=== PATIENT | female | born 1940 | race Caucasian/White ===

== ENCOUNTER → 2022-12-06 | Outpatient (CLI) | payer MEDICARE ==
[2022-12-06 15:51] LABS: Anion Gap 9.8 mmol/L (4.00-12.00); Carbon Dioxide 27.2 mmol/L (21.6-31.8); Potassium 4.3 mmol/L (3.5-5.5)
[2022-12-06 20:42] LABS: Basophils # (A) 0.06 X 10*3/uL (0.00-0.10); Basophils % (A) 1.1 %; Eosinophils # (A) 0.17 X 10*3/uL (0.04-0.35); HCT 43.7 % (37.2-46.3); HGB 14.1 d/dL (12.0-15.0); Lymphocytes # (A) 2.02 X 10*3/uL (0.90-5.00); Lymphocytes % (A) 35.4 %; MCH 30.4 pg (27.0-32.0); MCHC 32.3 d/dL (32.0-37.0); MCV 94.2 FL (80.0-97.0); Mean Platelet Volume 10.7 FL (9.5-12.2); Monocytes # (A) 0.52 X 10*3/uL (0.20-1.00); Monocytes % (A) 9.1 %; NRBC Per 100 WBC 0 X 10*3/uL (0.00-0.01); Neutrophils # (A) 2.93 X 10*3/uL (1.80-7.70); Neutrophils % (A) 51.2 %; Platelet Count 274 X 10*3/uL (140-440); RBC 4.64 X 10*6/uL (4.10-5.20); RDW 15.6 % (11.5-14.5); WBC 5.71 X 10*3/uL (4.50-10.00)
== END | disposition home or self-care (01) ==
LOC: LABWHC1 07:55
PROVIDERS: ATTEND Orthopaedic Surgery
DX: Z01.818 Encounter for other preprocedural examination (principal); M23.91 Unspecified internal derangement of right knee; R00.1 Bradycardia, unspecified
CPT/HCPCS: 36415; 80051; 85025; 93005

== ENCOUNTER 2022-12-27 10:45 | Day surgery (SDC) | payer MEDICARE ==
--- NOTE | 2022-12-26 13:48 | HP ---
HISTORY AND PHYSICAL DATE OF SCHEDULED SURGERY: 12/27/2022. HISTORY OF PRESENT ILLNESS: Gauri Machuca is an 82-year-old patient seen with progressive right knee pain. We discussed options for treatment. She elected to proceed with right knee arthroscopy. Consent regarding the procedure was obtained. PAST MEDICAL HISTORY: Noncontributory. PAST SURGICAL HISTORY: Noncontributory. DAILY MEDICATIONS: None. ALLERGIES: None. SOCIAL HISTORY: She denies tobacco use. PHYSICAL EVALUATION OF THE RIGHT KNEE: Range of motion is 0 to 135 degrees. Mild effusion. Tenderness along the medial joint line. Positive medial Gigi's. Ligaments stable. Hip rotation without pain. Distal neurovascular exam intact. RADIOGRAPHS: Right knee revealed moderate osteoarthritis. MRI right knee revealed medial meniscal tear. IMPRESSION: Internal derangement of right knee with medial meniscal tear. PLAN: Right knee arthroscopy with partial medial meniscectomy and debridement. MMODL / IJN: [id number] /
[2022-12-27] MEDS ORDERED: ONDANSETRON 4 MG/2 ML VIAL ONE (11:17)
[2022-12-27] MEDS ORDERED: LACTATED RINGERS 1,000 ML IV ONE (11:32)
[2022-12-27] MEDS ORDERED: DEXAMETHASONE SOD PHOSPHATE 4 MG/ML 1 ML VIAL IVP ONE (11:33)
[2022-12-27] MEDS ORDERED: BUPIVACAINE (PF) 0.25% 30 ML VIAL SQ ONE ×2 (12:28→13:14)
[2022-12-27] MEDS ORDERED: fentaNYL (PF) 50 MCG/ML 2 ML AMP ONE (12:45)
[2022-12-27] MEDS ORDERED: LIDOCAINE 2% INJ 20 MG/ML (2 ML VIAL) ONE (12:45)
[2022-12-27] MEDS ORDERED: PROPOFOL 10 MG/ML 20 ML VIAL IV ONE (12:45)
--- NOTE | 2022-12-27 13:37 | P.OP ---
Date of Procedure: 12/27/22 Preoperative Diagnosis: Internal derangement right knee Postoperative Diagnosis: 1. Tear medial and lateral meniscus right knee 2. Reactive synovitis medial, lateral and suprapatellar compartments right knee Procedure(s) Performed: 1. Arthroscopic partial medial and lateral meniscectomy right knee 2. Arthroscopic partial synovectomy medial, lateral and suprapatellar compartments right knee Anesthesia: YUEA, local Surgeon: Yaya Pimentel Estimated Blood Loss (ml): 8 Pathology: none sent Condition: stable Disposition: PACU Indications for Procedure: 82-year-old patient seen with progressive right knee pain. After having treatment options discussed, she elected to proceed with arthroscopy. Operative Findings: See description of procedure Description of Procedure: Patient was taken to the operative suite. Patient underwent a general anesthetic by the department of anesthesia. Patient was given preoperative antibiotics. The right lower extremity was placed in a well-padded arthroscopic leg dorsey. The right leg was prepped and draped in the normal sterile orthopedic fashion. A lateral parapatellar and suprapatellar incision was made. Trochars were inserted. Arthroscopy was initiated. Suprapatellar pouch revealed diffuse thick reactive synovitis. The patellofemoral joint appeared articulate congruently. There was no significant chondromalacia present. The scope was guided into the medial gutter. No loose findings or plica were identified. The scope was then guided into the medial compartment. A medial parapatellar incision was made. Trocar inserted followed by probe. There was a complex tear involving the posterior horn medial meniscus. There was mild grade 1 chondromalacia medial compartment. There was some thick reactive synovitis anteriorly. I performed a partial medial meniscectomy getting down to stable meniscal tissue. I performed a partial synovectomy decompressing the reactive synovitis. The residual meniscus was stable. There was good decompression of the synovitis. Scope and probe were then guided into the intercondylar notch. Cruciates were identified, probed and found to be stable. The scope and probe were then guided into lateral compartment. There was a radial tear involving the midbody lateral meniscus. There candis chondromalacia. There was some thick reactive synovitis anteriorly. I performed a partial lateral meniscectomy getting down to stable meniscal tissue. I performed a partial synovectomy decompressing the reactive synovitis. The residual meniscus was probed and was found to be stable. There was good decompression of the synovitis. The scope was in guided back into the suprapatellar compartment. I introduced a motorized shaver into the suprapatellar compartment. I debrided some piecemeal fragments of meniscus I encountered. I performed a partial synovectomy. Shaver was now removed. There appeared be good decompression of the synovitis. I now took one more look around the entire knee, no residual debris. Instruments were now removed from the joint. The joint was infiltrated with .25% Marcaine. Steri- Strips were applied to the portal sites. Sterile dressings were applied. The patient was placed into a AILEEN hose. No tourniquet was utilized. The patient was awakened, transferred to a bed and taken to recovery stable satisfactory condition.
[2022-12-27 13:38] VITALS: TEMP 97.6
[2022-12-27 13:41] VITALS: RESP 16
[2022-12-27 14:54] VITALS: BP 146/78; PULSE 61
== END 2022-12-27 15:08 | disposition home or self-care (01) ==
LOC: OR 10:45
PROVIDERS: ATTEND Orthopaedic Surgery
DX: S83.281A Other tear of lateral meniscus, current injury, right knee, initial encounter (principal); M65.9 Synovitis and tenosynovitis, unspecified; M23.91 Unspecified internal derangement of right knee; Z79.899 Other long term (current) drug therapy; Z98.890 Other specified postprocedural states
CPT/HCPCS: 29880; J1100; J0690; J2405; J3010; J2704; J2001

== ENCOUNTER → 2024-05-29 | Outpatient (CLI) | payer MEDICARE ==
--- NOTE | 2024-05-29 12:23 | MR ---
EXAMINATION TYPE: MR knee RT wo con DATE OF EXAM: 05/29/2024 12:06 PM COMPARISON: 11/02/2022. Also, radiograph 05/22/2024 CLINICAL INDICATION: Female, 83 years old with history of M25.561 RIGHT KNEE PAIN, Right knee pain an d swelling TECHNIQUE: Multiplanar, multisequence imaging of the right knee is performed without IV contrast. FINDINGS: The ACL, PCL, and MCL are intact. Small intrasubstance tear at the femoral attachment of the LCL proper. LCL complex otherwise intact. Irregular and diminutive appearance to the posterior horn and body of the medial meniscus. Consider c hronic tear versus interval partial meniscectomy. Some mild diffuse cartilage thinning in the medial compartment. There is interval development of a horizontal cleavage tear involving the body of the lateral meniscu s with a 6 mm parameniscal cyst. Mild to moderate irregular cartilage fissuring throughout the tibial articular surface of the lateral compartment. Mild diffuse thinning of the lateral femoral condyle a rticular cartilage. Overall patellofemoral compartment articular cartilage volume is maintained. Extensor mechanism is intact. Mild anterior soft tissue swelling with small knee joint effusion and a small Cardona's cyst measuring 3.6 x 1.6 cm. Normal popliteal artery anatomy. Aberrant high takeoff of the anterior tibial artery did take a cours e deep to the popliteus muscle belly. Mild edema within the gastrocnemius musculature. Either reactive to altered biomechanics or represent ing mild muscle strain. No suspicious bone marrow replacement. IMPRESSION: 1. Irregular and diminutive appearance to the posterior horn and body of the medial meniscus. Correla te for chronic tear versus partial meniscectomy. Changes slightly progressed from 11/02/2022. 2. Interval development of a horizontal cleavage tear involving the body of the lateral meniscus with a 6 mm parameniscal cyst. Mild overall lateral compartmental OA. 3. Small knee joint effusion and a small leaking Cardona's cyst. 4. Aberrant high takeoff of the anterior tibial artery to course deep to the popliteus muscle belly. [facility], , 05/29/2024 12:21 PM
== END | disposition home or self-care (01) ==
LOC: RADMRIMAIN 11:15
PROVIDERS: ATTEND Orthopaedic Surgery
DX: S83.281A Other tear of lateral meniscus, current injury, right knee, initial encounter (principal); M17.11 Unilateral primary osteoarthritis, right knee; M71.21 Synovial cyst of popliteal space [Baker], right knee; M25.461 Effusion, right knee

== ENCOUNTER → 2024-08-28 | Outpatient (CLI) | payer MEDICARE ==
[2024-08-28 10:25] LABS: Basophils # (A) 0.07 X 10*3/uL (0.00-0.10); Basophils % (A) 0.9 %; Eosinophils # (A) 0.21 X 10*3/uL (0.04-0.35); Eosinophils % (A) 2.8 %; HCT 41.7 % (37.2-46.3); HGB 13.6 g/dL (12.0-15.0); Lymphocytes # (A) 2.11 X 10*3/uL (0.90-5.00); Lymphocytes % (A) 27.9 %; MCH 30.4 pg (27.0-32.0); MCHC 32.6 g/dL (32.0-37.0); MCV 93.3 FL (80.0-97.0); Mean Platelet Volume 10.8 FL (9.5-12.2); Monocytes # (A) 0.54 X 10*3/uL (0.20-1.00); Monocytes % (A) 7.1 %; NRBC Per 100 WBC 0 X 10*3/uL (0.00-0.01); Neutrophils # (A) 4.61 X 10*3/uL (1.80-7.70); Platelet Count 289 X 10*3/uL (140-440); RBC 4.47 X 10*6/uL (4.10-5.20); WBC 7.56 X 10*3/uL (4.50-10.00)
[2024-08-28 10:29] LABS: Anion Gap 9.7 mmol/L (4.00-12.00); Carbon Dioxide 27.3 mmol/L (21.6-31.8); Potassium 4.1 mmol/L (3.5-5.5)
== END | disposition home or self-care (01) ==
LOC: LABPAT 07:33
PROVIDERS: ATTEND Orthopaedic Surgery
DX: Z01.812 Encounter for preprocedural laboratory examination (principal); M23.91 Unspecified internal derangement of right knee
CPT/HCPCS: 80051; 85025

== ENCOUNTER 2024-09-10 09:54 | Day surgery (SDC) | payer MEDICARE ==
--- NOTE | 2024-09-09 20:57 | HP ---
HISTORY AND PHYSICAL DATE OF SURGERY: 09/10/2024. HISTORY OF PRESENT ILLNESS: Gauri Machuca is an 84-year-old patient seen with progressive right knee pain. Options were discussed. She elected to proceed with right knee arthroscopy. Consent was obtained. PAST MEDICAL HISTORY: Noncontributory. PAST SURGICAL HISTORY: Knee arthroscopy. DAILY MEDICATIONS: None. ALLERGIES: None reported. SOCIAL HISTORY: She denies tobacco use. PHYSICAL EVALUATION OF THE RIGHT KNEE: Range of motion is 0 to 120 degrees. Mild effusion. Tenderness, medial and lateral joint lines. Positive medial Gigi's. Positive lateral Gigi's. Ligaments stable. Hip rotation without pain. Distal neurovascular exam is intact. IMAGING STUDIES: Radiographs of the right knee revealed moderate osteoarthritis. MRI of right knee revealed lateral meniscal tear, parameniscal cyst involving the medial meniscus. IMPRESSION: Internal derangement of right knee with lateral meniscal tear, and possible medial meniscal tear. PLAN: Right knee arthroscopy with partial lateral meniscectomy, possible partial medial meniscectomy and debridement. MMODL / IJN: [id number] /
[~2024-09-10 09:54] MED LIST: HYDROmorphone 0.5 MG/0.5 ML SYRINGE IVP PRN; MIDAZOLAM 2 MG/2 ML VIAL IV PRN; fentaNYL (PF) 50 MCG/ML 2 ML AMP IVP PRN
[2024-09-10] MEDS: LIDOCAINE 1% (10MG/ML) FOR IV START INTRADERMA PRN (10:35)
[2024-09-10] MEDS: IV FLUID CONTINUATION 1,000 ML IV ONE (10:35)
[2024-09-10] MEDS: LACTATED RINGERS 1,000 ML IV SCH (10:35)
[2024-09-10] MEDS: ONDANSETRON 4 MG/2 ML VIAL IVP ONE (10:42)
[2024-09-10] MEDS: DEXAMETHASONE SOD PHOSPHATE 4 MG/ML 1 ML VIAL IV ONE (10:42)
[2024-09-10 10:55] VITALS: RESP 16
[2024-09-10] MEDS ORDERED: ePHEDrine 50 MG/ML 1 ML VIAL ONE (11:32)
[2024-09-10] MEDS ORDERED: PROPOFOL 10 MG/ML 20 ML VIAL IV ONE (11:32)
[2024-09-10] MEDS ORDERED: GLYCOPYRROLATE 0.2 MG/ML 2 ML VIAL ONE (11:32)
[2024-09-10] MEDS ORDERED: LIDOCAINE 1% INJ 10MG/ML (20 ML MDV) ONE (11:32)
[2024-09-10] MEDS ORDERED: fentaNYL (PF) 50 MCG/ML 2 ML AMP ONE (11:32)
[2024-09-10] MEDS: BUPIVACAINE (PF) 0.25% 30 ML VIAL MISCELLANE ONE ×2 (11:35→12:21)
--- NOTE | 2024-09-10 12:35 | P.OP ---
Date of Procedure: 09/10/24 Preoperative Diagnosis: Internal derangement right knee Postoperative Diagnosis: 1. Tear medial and lateral meniscus right knee 2. Grade IV chondromalacia femoral sulcus right knee 3. Reactive synovitis medial, lateral and suprapatellar compartments right knee Procedure(s) Performed: 1. Arthroscopic partial medial and lateral meniscectomy right knee 2. Arthroscopic microfracture medial femoral condyle right knee 3. Arthroscopic partial synovectomy medial, lateral and suprapatellar compartments right knee Anesthesia: GETA, local Surgeon: Yaya Pimentel Estimated Blood Loss (ml): 7 Pathology: none sent Condition: stable Disposition: PACU Indications for Procedure: 84-year-old patient seen with progressive right knee pain. After having treatment options discussed, she elected to proceed with arthroscopy. Operative Findings: See description of procedure Description of Procedure: Patient was taken to the operative suite. Patient underwent a general anesthetic by the department of anesthesia. Patient was given preoperative antibiotics. The right lower extremity was placed in a well-padded arthroscopic leg dorsey. The right leg was prepped and draped in the normal sterile orthopedic fashion. A lateral parapatellar and suprapatellar incision was made. Trochars were inserted. Arthroscopy was initiated. Suprapatellar pouch revealed diffuse thick reactive synovitis. The patellofemoral joint appeared to articulate congruently. There was grade I chondromalacia patella and 1 area of grade III/IV chondromalacia of the femoral sulcus with osteochondral flap tears present. The scope was guided into the medial gutter. No loose bodies or plica were identified the scope was then guided into the medial compartment. A medial parapatellar incision was made. Trocar inserted followed by probe. There was a complex tear involving the mid body and posterior horns of the medial meniscus. There were grade I/II chondromalacia changes medial compartment without tears. There was some thick reactive synovitis anteriorly. I performed a partial medial meniscectomy getting down to stable meniscal tissue. I performed a partial synovectomy decompressing the reactive synovitis. The residual meniscus was probed and was found to be stable. There was good decompression of the synovitis anteriorly. Scope and probe were then guided into the intercondylar notch. Cruciates were identified, probed and found to be stable. The scope and probe were then guided into lateral compartment. There was a tear involving the mid body of the lateral meniscus. There were grade I chondromalacia changes lateral compartment with no tears. There was some thick reactive synovitis anteriorly. I performed a partial lateral meniscectomy getting down to stable meniscal tissue. I performed a partial synovectomy decompressing the reactive synovitis. The residual meniscus was stable. There was good decompression of the synovitis. The scope was in guided back into the suprapatellar compartment. I reduced a motorized shaver into the suprapatellar compartment. I debrided some piecemeal fragments of meniscus that I encountered. I performed a partial synovectomy decompressing the thick reactive synovitis. I performed a chondroplasty of the femoral sulcus getting down to stable osteochondral tissue. I did note an area of grade IV chondromalacia measuring about a centimeter with exposed bone. I reduced a microfracture awl and I performed a microfracture to the area of exposed bone along the femoral sulcus penetrating the bone with resultant bleeding at the microfracture site. That residual osteochondral surface was probed and was found to be stable. I now took 1 more look around the entire knee, no residual debris. Instruments were now removed from the joint. The joint was infiltrated with .25% Marcaine. Steri-Strips were applied to the portal sites. Sterile dressings were applied. The patient was placed into a AILEEN hose. No tourniquet was utilized. The patient was awakened, tr ansferred to a bed and taken to recovery stable satisfactory condition.
[2024-09-10 12:44] VITALS: TEMP 97.1
[2024-09-10 13:24] VITALS: BP 153/92; PULSE 68
== END 2024-09-10 13:50 | disposition home or self-care (01) ==
LOC: OR 09:54
PROVIDERS: ATTEND Orthopaedic Surgery
DX: S83.241A Other tear of medial meniscus, current injury, right knee, initial encounter (principal); S83.281A Other tear of lateral meniscus, current injury, right knee, initial encounter; M94.261 Chondromalacia, right knee; M65.861 Other synovitis and tenosynovitis, right lower leg; X58.XXXA Exposure to other specified factors, initial encounter
CPT/HCPCS: 29880; 29879; 29876; J1100; J0690; J2405; J2003; J3010; J2704; J0665; J1596